=== PATIENT | male | born 1950 | race Caucasian/White ===

== ENCOUNTER 2023-05-16 10:53 | Inpatient (IN) | payer MEDICARE, BC ==
[~2023-05-16] VITALS: Ht 177.8 cm; Wt 108.5 kg
[~2023-05-16 10:53] MED LIST: HEPARIN SOD (PORCINE) 5000UNITS/ML 1ML VIAL/SYRINGE SQ ONE; LOSA50TA5 PO; METF500T13 PO; SIMV20TA22 PO; ceFAZolin SOD 2 GM in IV 1 EA IV ONE
[2023-05-16 11:47] LABS: INR 1.06; PROTHROMBIN TIME 13.5 SECONDS (12.5-14.5)
[2023-05-16 11:48] LABS: PARTIAL THROMBOPLASTIN TIME 27.6 SECONDS (24.8-34.2)
[2023-05-16] MEDS ORDERED: INSULIN LISPRO (NovoLOG) PER UNIT SC PRN ×2 (11:55→17:15)
[2023-05-16] MEDS ORDERED: LIDOCAINE 1% SDV 30ML VIAL As Ordered ONE (12:05)
[2023-05-16] MEDS ORDERED: HYDROmorphone HCL 2MG/ML 1ML VIAL As Ordered ONE (12:11)
[2023-05-16] MEDS ORDERED: ONDANSETRON 4MG 2ML VIAL As Ordered ONE (12:11)
[2023-05-16] MEDS ORDERED: SUGAMMADEX SODIUM 500 MG/5 ML VIAL (BRIDION) As Ordered ONE (12:11)
[2023-05-16] MEDS ORDERED: KETOROLAC 60MG 2ML VIAL As Ordered ONE (12:11)
[2023-05-16] MEDS ORDERED: ROCURONIUM BROMIDE 50MG/5ML VIAL As Ordered ONE ×2 (12:11→16:19)
[2023-05-16] MEDS ORDERED: ACETAMINOPHEN 1000MG 100ML IV BAG As Ordered ONE (12:11)
[2023-05-16] MEDS ORDERED: propofoL 200 MG/20 ML VIAL As Ordered ONE (12:11)
[2023-05-16] MEDS ORDERED: MIDAZOLAM INJ 2MG/2ML VIAL As Ordered ONE (12:11)
[2023-05-16] MEDS ORDERED: LIDOCAINE 2% 100MG/5ML SDV (FOR ANES.) As Ordered ONE (12:11)
[2023-05-16] MEDS ORDERED: fentaNYL 100 MCG/2 ML INJECTION As Ordered ONE (12:12)
[2023-05-16] MEDS ORDERED: PERCOCET 5MG/325MG TAB PO PRN ×2 (12:40)
[2023-05-16] MEDS ORDERED: DEXTROSE 50% 50ML SYRINGE IV PRN (12:40)
[2023-05-16] MEDS ORDERED: GLUCOSE 4GM CHEW TABLET PO PRN (12:40)
[2023-05-16] MEDS ORDERED: GLUCAGON INJ 1MG VIAL SC PRN (12:40)
[2023-05-16] MEDS ORDERED: ONDANSETRON 4MG 2ML VIAL IV PRN ×2 (12:40→17:15)
[2023-05-16] MEDS ORDERED: ATROPINE SULF 0.4 MG/ML 1ML VIAL As Ordered ONE (13:49)
[2023-05-16] MEDS ORDERED: METF500T13 PO (16:21)
[2023-05-16] MEDS ORDERED: LOSA50TA5 PO (16:22)
[2023-05-16] MEDS ORDERED: dexmedeTOMIDine (4MCG/ML)200MCG/50ML BTL (PRECEDEX) As Ordered ONE (16:54)
[2023-05-16] MEDS ORDERED: ceFAZolin 1GM VIAL As Ordered ONE (17:08)
[2023-05-16] MEDS ORDERED: METOCLOPRAMIDE INJ 10MG/2ML VIAL IV PRN (17:15)
[2023-05-16] MEDS ORDERED: MEPERIDINE 25 MG/ML 1ML VIAL IV PRN (17:15)
[2023-05-16] MEDS ORDERED: diphenhydrAMINE 50MG/ML VIAL IV PRN (17:15)
[2023-05-16] MEDS ORDERED: oxyCODONE 5MG TAB PO PRN (17:15)
[2023-05-16] MEDS ORDERED: fentaNYL 100 MCG/2 ML INJECTION IV PRN (17:15)
[2023-05-16] MEDS ORDERED: HYDROMORPHONE HCL 0.5 MG/ 0.5 ML SYRINGE IV PRN (17:15)
[2023-05-16 18:18] LABS: HEMATOCRIT 41.8 % (42.0-52.0); HEMOGLOBIN 13.9 g/dl (13.5-17.5); MEAN CORPUSCULAR HEMOGLOBIN 28.5 pg (27.0-33.0); MEAN CORPUSCULAR HGB CONC 33.3 g/dl (32.0-36.5); MEAN CORPUSCULAR VOLUME 85.7 fl (80.0-96.0); PLATELET COUNT, AUTOMATED 256 10^3/uL (150-450); RED BLOOD COUNT 4.88 10^6/uL (4.30-6.10); WHITE BLOOD COUNT 11.6 10^3/uL (4.0-10.0)
[2023-05-16 18:28] LABS: BLOOD UREA NITROGEN 15 MG/DL (9-23); CALCIUM LEVEL 8.9 MG/DL (8.3-10.6); CARBON DIOXIDE LEVEL 24 MMOL/L (20-31); CHLORIDE LEVEL 105 MMOL/L (98-107); CREATININE FOR GFR 1.16 MG/DL (0.70-1.30); GLOMERULAR FILTRATION RATE > 60.0 (>42); GLUCOSE, FASTING 198 MG/DL (74-106); POTASSIUM SERUM 4.6 MMOL/L (3.5-5.1); SODIUM LEVEL 140 MMOL/L (136-145)
[2023-05-16 20:00] VITALS: BP 141/77; TEMP 98.4; O2SAT 97
[2023-05-16] MEDS: SIMVASTATIN 20 MG TAB PO SCH (20:25)
[2023-05-16] MEDS: ceFAZolin SOD 1 GM in D5W MINI-BAG PLUS 50 ML IV SCH (20:26)
[2023-05-16] MEDS: DOCUSATE SODIUM 100MG CAPSULE PO SCH (20:26)
[2023-05-16] MEDS: NS 1,000 ML IV SCH (20:26)
[2023-05-16 20:30] VITALS: BP 146/80; TEMP 98.6; O2SAT 97
[2023-05-16] MEDS: INSULIN LISPRO (NovoLOG) PER UNIT SC SCH (20:31)
[2023-05-16 21:00] VITALS: BP 125/68; TEMP 98.8; O2SAT 97
[2023-05-16 22:00] VITALS: BP 126/69; TEMP 98.8; O2SAT 96
[2023-05-16] MEDS ORDERED: HOME MED LIST COMPLETE! XX SCH (22:35)
[2023-05-16 23:00] VITALS: BP 124/67; TEMP 98.8; O2SAT 96
[2023-05-17] VITALS (12 sets, daily range): BP systolic 123–169; BP diastolic 60–88; TEMP 98.1–99.7; O2SAT 93–98
[2023-05-17] MEDS: HEPARIN SOD (PORCINE) 5000UNITS/ML 1ML VIAL/SYRINGE SC SCH ×3 (05:42→21:47)
[2023-05-17] MEDS: ceFAZolin SOD 1 GM in D5W MINI-BAG PLUS 50 ML IV SCH (05:42)
[2023-05-17 06:18] LABS: HEMATOCRIT 37.3 % (42.0-52.0); HEMOGLOBIN 12.3 g/dl (13.5-17.5); MEAN CORPUSCULAR HEMOGLOBIN 28.3 pg (27.0-33.0); MEAN CORPUSCULAR VOLUME 85.9 fl (80.0-96.0); PLATELET COUNT, AUTOMATED 220 10^3/uL (150-450); RED BLOOD COUNT 4.34 10^6/uL (4.30-6.10); WHITE BLOOD COUNT 10.2 10^3/uL (4.0-10.0)
[2023-05-17 06:41] LABS: BLOOD UREA NITROGEN 20 MG/DL (9-23); CALCIUM LEVEL 8.5 MG/DL (8.3-10.6); CARBON DIOXIDE LEVEL 24 MMOL/L (20-31); CHLORIDE LEVEL 103 MMOL/L (98-107); CREATININE FOR GFR 1.12 MG/DL (0.70-1.30); GLOMERULAR FILTRATION RATE > 60.0 (>42); GLUCOSE, FASTING 188 MG/DL (74-106); POTASSIUM SERUM 4.4 MMOL/L (3.5-5.1); SODIUM LEVEL 137 MMOL/L (136-145)
[2023-05-17] MEDS: INSULIN LISPRO (NovoLOG) PER UNIT SC SCH ×5 (07:19→21:00)
[2023-05-17] MEDS: DOCUSATE SODIUM 100MG CAPSULE PO SCH ×3 (07:19→21:48)
[2023-05-17] MEDS: hydroCHLOROthiazide 12.5 MG CAPSULE PO SCH (08:17)
[2023-05-17] MEDS: LOSARTAN 50MG TABLET PO SCH (08:17)
[2023-05-17] MEDS: NS 1,000 ML IV SCH (08:40)
[2023-05-17 15:00] LABS: HIV SCREEN CENTAUR SOURCE NEGATIVE (NEGATIVE)
[2023-05-17] MEDS: METOCLOPRAMIDE INJ 10MG/2ML VIAL IV PRN (15:35)
[2023-05-17] MEDS: SIMVASTATIN 20 MG TAB PO SCH (21:47)
[2023-05-17] MEDS: ACETAMINOPHEN TAB 650MG DOSE (2X325MG) PO PRN (21:47)
[2023-05-18] MEDS ORDERED: CALCIUM CARBONATE 500 MG CHEW U/D PO PRN (01:00)
[2023-05-18 02:37] VITALS: BP 154/85; TEMP 98.8; O2SAT 94
[2023-05-18 05:00] VITALS: BP 131/71; TEMP 98.6; O2SAT 93
[2023-05-18] MEDS: ACETAMINOPHEN TAB 650MG DOSE (2X325MG) PO PRN ×2 (05:24→13:17)
[2023-05-18] MEDS: HEPARIN SOD (PORCINE) 5000UNITS/ML 1ML VIAL/SYRINGE SC SCH (05:24)
[2023-05-18] MEDS: METOCLOPRAMIDE INJ 10MG/2ML VIAL IV PRN (05:25)
[2023-05-18 06:14] LABS: HEMATOCRIT 37.9 % (42.0-52.0); HEMOGLOBIN 12.6 g/dl (13.5-17.5); MEAN CORPUSCULAR HEMOGLOBIN 28.5 pg (27.0-33.0); MEAN CORPUSCULAR HGB CONC 33.2 g/dl (32.0-36.5); MEAN CORPUSCULAR VOLUME 85.7 fl (80.0-96.0); PLATELET COUNT, AUTOMATED 225 10^3/uL (150-450); RED BLOOD COUNT 4.42 10^6/uL (4.30-6.10); WHITE BLOOD COUNT 9.6 10^3/uL (4.0-10.0)
[2023-05-18 06:45] LABS: BLOOD UREA NITROGEN 13 MG/DL (9-23); CALCIUM LEVEL 8.9 MG/DL (8.3-10.6); CARBON DIOXIDE LEVEL 27 MMOL/L (20-31); CHLORIDE LEVEL 105 MMOL/L (98-107); CREATININE FOR GFR 1.01 MG/DL (0.70-1.30); GLOMERULAR FILTRATION RATE > 60.0 (>42); GLUCOSE, FASTING 162 MG/DL (74-106); POTASSIUM SERUM 4.1 MMOL/L (3.5-5.1); SODIUM LEVEL 140 MMOL/L (136-145)
[2023-05-18 08:30] VITALS: BP 129/70; TEMP 98.8; O2SAT 95
[2023-05-18] MEDS: INSULIN LISPRO (NovoLOG) PER UNIT SC SCH ×2 (08:53→12:22)
[2023-05-18] MEDS: DOCUSATE SODIUM 100MG CAPSULE PO SCH (09:00)
[2023-05-18 10:00] VITALS: BP 117/61; TEMP 98.6; O2SAT 94
[2023-05-18] MEDS: hydroCHLOROthiazide 12.5 MG CAPSULE PO SCH (10:46)
[2023-05-18] MEDS: LOSARTAN 50MG TABLET PO SCH (10:46)
[2023-05-18] MEDS ORDERED: COLA100C5 PO (11:59)
[2023-05-18] MEDS ORDERED: PERCOCET PO (11:59)
[2023-05-18] MEDS ORDERED: CIPR-249 PO (11:59)
== END 2023-05-18 13:40 | disposition home or self-care (01) | DRG 707 ==
LOC: M OR 10:53 → M MSPAV 19:54
PROVIDERS: ADMIT Urology; ATTEND Urology
PROC: 0VT04ZZ Resection of Prostate, Percutaneous Endoscopic Approach (ICD-10-PCS; principal; 2023-05-17)
PROC: 07TC4ZZ Resection of Pelvis Lymphatic, Percutaneous Endoscopic Approach (ICD-10-PCS; 2023-05-17)
PROC: 8E0W4CZ Robotic Assisted Procedure of Trunk Region, Percutaneous Endoscopic Approach (ICD-10-PCS; 2023-05-17)
DX: C61 Malignant neoplasm of prostate (principal); I46.9 Cardiac arrest, cause unspecified; I97.711 Intraoperative cardiac arrest during other surgery; I44.1 Atrioventricular block, second degree; Z88.0 Allergy status to penicillin; Z79.899 Other long term (current) drug therapy; G47.33 Obstructive sleep apnea (adult) (pediatric); E66.9 Obesity, unspecified; I10 Essential (primary) hypertension; E11.9 Type 2 diabetes mellitus without complications; E78.00 Pure hypercholesterolemia, unspecified